=== PATIENT | male | born 1995 | race African-American/Black ===

== ENCOUNTER 2016-06-26 00:32 | Emergency (ER) | payer OTHER | END 2016-06-26 04:57 | disposition home or self-care (01) | LOC: ER1 00:32 | DX: J10.1 Influenza due to other identified influenza virus with other respiratory manifestations (principal); J01.10 Acute frontal sinusitis, unspecified | CPT/HCPCS: 71020; 87081; 87880; 99283; Q0162 ==

== ENCOUNTER → 2021-06-12 | Outpatient (CLI) | payer SELFPAY | LOC: EMI 14:02 | DX: S83.512A Sprain of anterior cruciate ligament of left knee, initial encounter (principal) | CPT/HCPCS: 73721 ==